=== PATIENT | female | born 1955 | race Caucasian/White ===

== ENCOUNTER 2016-07-20 16:19 | Emergency (ER) | payer OTHER ==
[2016-07-20 16:47] VITALS: BP 118/80; PULSE 85; RESP 18; TEMP 98.1; O2SAT 93
--- NOTE | 2016-07-20 16:58 | UCPHY ---
H & P Time Seen by Provider: 07/20/16 16:49 Patient Type: Established HPI/ROS: CHIEF COMPLAINT: Needs medication refill HISTORY OF PRESENT ILLNESS: 61-year-old female with chronic pain, followed by a Pain Medicine Clinic in [place], presents reporting that she needs a prescription for her morphine sulfate 15 mg tablets. Patient has chronic back pain and was recently seen by her pain management physician. He wrote a prescription for morphine sulfate 15 mg number 90. Patient presents to the prescription to a nearby pharmacy. It was noted that the 15 had been altered in a different pen to appear as a 45. Patient shows me the prescription: Patient has addressed this filled out and a black pen in the same black pen appears to have been used to make a small L-shaped sebas near the 1 to converted to a 4. Patient denies doing this. She tells me she is not sure how this happened. It may have been caused by a pharmacy picking technician or another pharmacy employer who wrote her address in black ink. The prescription itself is written in blue ink. Patient states that she called her primary care physician who advised to come to Urgent Care. She states that she called her pain medicine doctor who declined to fill the prescription. REVIEW OF SYSTEMS: Aside from elements discussed in the HPI, a comprehensive 10-point review of systems was reviewed and is negative. PAST MEDICAL HISTORY: Chronic lumbar spine pain. Patient tells me she has a surgery scheduled early July. SOCIAL HISTORY: Smoker. VITAL SIGNS: see nurse's notes. GENERAL: Well-developed, well-nourished, wearing a LSO brace. HEENT: Benign. BACK: Currently in an LSO brace. Tenderness over the lower lumbar spine diffusely. EXTREMITIES: Moving all extremities x4. NEURO: Alert and oriented, grossly nonfocal. SKIN: Warm and dry, no rash. Smoking Status: Light smoker Constitutional: Initial Vital Signs Temperature (C) 36.7 C 07/20/16 16:41 Heart Rate 85 07/20/16 16:41 Respiratory Rate 18 07/20/16 16:41 Blood Pressure 118/80 07/20/16 16:41 O2 Sat (%) 93 07/20/16 16:41 O2 Delivery Mode Room Air Allergies/Adverse Reactions: Corticosteroids (Glucocorticoids) Allergy (Severe, Verified 02/16/16 14:54) Swelling/neck,face,throat Home Medications: Medication Instructions Recorded Levothyroxine [Synthroid 100 mcg 100 mcg PO DAILY06 06/07/13 (*)] Sertraline HCl [Zoloft 100mg (*)] 100 mg PO DAILY 06/07/13 Pregabalin [Lyrica 50mg (*)] 100 mg PO DAILY 02/05/16 tiZANidine HCL [Zanaflex 2MG (*)] 4 mg PO Q8 PRN 02/13/16 Methocarbamol [Robaxin 750 mg (*)] 750 mg PO QID PRN #0 tab 02/23/16 morphINE SR [MS Contin/Oramorph 60 60 mg PO Q8 #0 tab 02/23/16 mg (*)] MDM/Departure - MDM ED Course/Re-evaluation: Patient reports that she needs 45 mg of morphine sulfate 3 times a day. She currently has morphine sulfate 30 mg which she has been using 3 times a day. I advised patient that I will not fill her morphine sulfate 15 mg prescription. She should take the original prescription back to her pain clinic office. My suspicion is that if they were willing to write her prescription for 15 mg of morphine sulfate, and the prescription she currently has an hand has not been filled, they will need to discuss with her whether they will authorize additional prescription for 15 mg of morphine sulfate. Patient understands my concerns and was discharged in stable condition. Differential Diagnosis: Differential diagnoses for the patient's symptom complex was considered including but not limited to medication refill, medication error, drug-seeking behavior, chronic pain. - Depart Disposition: Home, Routine, Self-Care Clinical Impression: Fusion of lumbar spine, Medication refill Back pain Qualifiers: Back pain location: low back pain Chronicity: chronic Back pain laterality: midline Sciatica presence: unspecified whether sciatica present Qualifier Code: (M54.5) Low back pain Condition: Good Instructions: Chronic Pain (ED), Chronic Back Pain (ED) Additional Instructions: The Urgent Care is not able to feel your prescription for morphine sulfate extended release. My recommendation is that you contact your pain medication Clinic and advised them of the issues with your prescription. Referrals: Jennifer Ruvalcaba MD [Primary Care Provider] - As per Instructions - PQRS PQRS Measurement: Not applicable
== END 2016-07-20 17:05 | disposition home or self-care (01) ==
LOC: CED 16:19
DX: M54.5 Low back pain (principal); Z76.0 Encounter for issue of repeat prescription
CPT/HCPCS: G0463-PO

== ENCOUNTER 2016-08-09 09:02 | Day surgery (SDC) | payer OTHER ==
[~2016-08-09 09:02] MED LIST: CHLORHEXIDINE GLUC HIBICLENS 118 ML BTL TP ONE; ceFAZolin 2 GM/DEXTROSE 100 ML IV ONE
[2016-08-09] MEDS ORDERED: LR 1,000 ML IV ONE (09:33)
[2016-08-09] MEDS ORDERED: LIDOCAINE 1% 5 ML SDV ID PRN (09:33)
[2016-08-09] MEDS ORDERED: CEFAZOLIN 2 GM/DEXTROSE/100 ML BAG IV ONE (09:43)
[2016-08-09] MEDS ORDERED: IOPAMIDOL (ISOVUE-M 300) 15 ML VIAL IV ONE (09:49)
[2016-08-09] MEDS ORDERED: BUPIVACAINE/EPI 0.25% 30 ML SDV ONE (09:49)
[2016-08-09] MEDS ORDERED: BACITRACIN 50,000 UNITS/10 ML SYR IRR ONE (09:49)
[2016-08-09] MEDS ORDERED: THROMBIN (RECOMBINANT) 5,000 UNIT VIAL TP ONE (09:49)
[2016-08-09] MEDS ORDERED: PROPOFOL 200 MG/20 ML VIAL ONE (10:22)
[2016-08-09] MEDS ORDERED: HYDROmorphONE/DILAUDID 2 MG/ML SYR ONE (10:22)
[2016-08-09] MEDS ORDERED: LIDOCAINE 2% 5 ML SDV ONE ×2 (10:25)
[2016-08-09] MEDS ORDERED: ROCURONIUM 50 MG/5 ML VIAL ONE (10:25)
[2016-08-09] MEDS ORDERED: ONDANSETRON 4 MG/2 ML VIAL ONE (10:26)
[2016-08-09] MEDS ORDERED: REMIFENTANIL HCL 1 MG VIAL ONE ×2 (10:27)
[2016-08-09] MEDS ORDERED: PROPOFOL/EMULSION 500 MG/50 ML BOTTLE IV ONE ×2 (10:27→11:29)
[2016-08-09] MEDS ORDERED: MIDAZOLAM 2 MG/2 ML VIAL ONE (10:30)
[2016-08-09] MEDS ORDERED: METOCLOPRAMIDE 10 MG/2 ML VIAL ONE (10:37)
[2016-08-09] MEDS ORDERED: OXYCODONE/APAP 5/325 TAB PO PRN (12:14)
[2016-08-09] MEDS ORDERED: diphenhydrAMINE 25 MG CAP PO PRN (12:14)
[2016-08-09] MEDS ORDERED: HYDROmorphONE/DILAUDID 1 MG/ML SYR IVP PRN (12:14)
[2016-08-09] MEDS ORDERED: DIAZEPAM 5 MG TAB PO PRN (12:14)
[2016-08-09] MEDS ORDERED: METHOCARBAMOL 750 MG TAB PO PRN (12:14)
[2016-08-09] MEDS ORDERED: LACTULOSE 20 GM/30 ML UDCUP PO PRN (12:14)
[2016-08-09] MEDS ORDERED: DIAZEPAM 10 MG/2 ML SYR IVP PRN (12:14)
[2016-08-09] MEDS ORDERED: ACETAMINOPHEN 325 MG TAB PO PRN (12:14)
[2016-08-09] MEDS ORDERED: BISACODYL 10 MG SUPP PR PRN (12:14)
[2016-08-09] MEDS ORDERED: HYDROCODONE/APAP 10/325 TAB PO PRN (12:14)
[2016-08-09] MEDS ORDERED: ONDANSETRON 4 MG/2 ML VIAL IVP PRN (12:14)
[2016-08-09] MEDS ORDERED: MAGNESIUM HYDROXIDE 30 ML UDCUP PO PRN (12:14)
[2016-08-09] MEDS ORDERED: ONDANSETRON DISINTEGRATING 4 MG TAB PO PRN (12:14)
[2016-08-09] MEDS ORDERED: NS W/ 20 KCl/L 1,000 ML IV SCH (12:15)
[2016-08-09] MEDS ORDERED: tiZANidine HCL 2 MG TAB PO PRN (12:17)
--- NOTE | 2016-08-09 12:20 | POSTOPPROG ---
Post Op Note Date of Operation: 08/09/16 Surgeon: Gael Nicole Extended Insurance Clerk: Gordy Anesthesiologist: criselda Anesthesia: GET(General Endotracheal) Pre-op Diagnosis: T7 compression fracture Post-op Diagnosis: same Indication: back pain Procedure: T7 kyphoplasty Findings: fracture Inf/Abcess present in the surg proc area at time of surgery?: No EBL: Minimal Complications: None
--- NOTE | 2016-08-09 12:22 | SOAPPROG ---
BANDAR Progress Note Assessment/Plan: Assessment: 61 yo F sp T7 kyphoplasty Plan: stable to 3N PT/OT x-rays today please call with neuro changes 08/09/16 12:20 Subjective: + back pain, no rib pain. Objective: somnolent PERRL, No facial droop, VERONICA x 4 + light touch ICD10 Worksheet Patient Problems: Problems Problem Status Diagnosed Thoracic vertebral fracture Acute - ICD10 Problem Qualifiers (1) Thoracic vertebral fracture
[2016-08-09] MEDS ORDERED: fentaNYL 100 MCG/2 ML INJ ONE (12:24)
[2016-08-09] MEDS ORDERED: oxyCODONE IR 5 MG TAB PO PRN (13:38)
--- NOTE | 2016-08-09 13:54 | GOP ---
[f rep st] OPERATIVE REPORT DATE OF OPERATION: 08/09/2016 SURGEON: Gael Nicole MD SHIFT COMMANDER: GEMMA Dalal ANESTHESIA: General endotracheal. PREOPERATIVE DIAGNOSIS: T7 vertebral compression fracture. POSTOPERATIVE DIAGNOSIS: T7 vertebral compression fracture. PROCEDURE PERFORMED: T7 radiofrequency kyphoplasty procedure with use of intraoperative computer vol umetric stereotactic navigation and real-time biplanar fluoroscopy. FINDINGS: ESTIMATED BLOOD LOSS: Trace. INDICATIONS: The patient is a 61-year-old woman who, about 6 months ago, underwent a T7 through edouard c spinal reconstruction procedure with subsequent pain in the upper thoracic spine, and was found to have what appeared to be a T7 fracture. Multiple options were discussed with her, including observat ion versus re-instrumentation and extension of the fusion upwards, and we felt that this was the smal lest operation with the most potential benefit. The patient presents now for 3D image-guided kyphopl asty procedure. DESCRIPTION OF PROCEDURE: After informed consent was obtained, the patient was taken to the operatin g room, placed in the prone position on the Jared table. The thoracic area was prepped and draped in a sterile fashion. After fluoroscopic localization of the correct level, the subcutaneous and int ramuscular tissues were infiltrated with local anesthesia a couple levels above this area. A small i ncision was created and carried down to the spinous process, where a stereotactic frame was connected . The O-arm neuronavigational system was then brought in, and 3D reconstructed images obtained and s ent to the Stealth station. Using computer volumetric stereotactic navigation, the T7 pedicles were cannulated around the prior screws as best we could. The radiofrequency kyphoplasty procedure was th en performed under real-time biplanar fluoroscopy. Excellent filling was observed with no leakage. Approximately 4 cc of bone cement was injected between the 2 sides. The cannulae were then removed, and the wound was copiously irrigated with antibiotic irrigation and closed in a layered fashion usin g interrupted Vicryl sutures followed by Steri-Strips on the skin. COMPLICATIONS: None. DISPOSITION: The patient was extubated and transferred to the recovery room in stable condition. /[id number]/MODL
[2016-08-09] MEDS ORDERED: oxyCODONE IR 5 MG TAB ONE (13:58)
[2016-08-09] MEDS ORDERED: POLYETHYLENE GLYCOL 3350 17 GM PKT PO SCH (16:00)
--- NOTE | 2016-08-09 19:02 | DX ---
Intraoperative fluoroscopy History: Kyphoplasty. Comparison: PA and lateral chest June 01, 2016. Findings: 2 intraoperative images show placement of kyphoplasty cement at T7, with a stable mild comp ression fracture. Thoracolumbar fusion hardware is incompletely visualized. Fluoro time: 31.4 seconds. Dose: 31.5 mGy. 2 3-D spins were performed, with combined dose of 34 mGy. Impression: Intraoperative fluoroscopy as above.
[2016-08-09] MEDS ORDERED: morphINE SR 60 MG TAB PO SCH (21:00)
[2016-08-09] MEDS ORDERED: FAMOTIDINE 20 MG/NACL 50 ML IV SCH (21:00)
[2016-08-09] MEDS ORDERED: SENNOSIDES/DOCUSATE SODIUM TAB PO SCH (21:00)
[2016-08-10] MEDS ORDERED: LEVOTHYROXINE 100 MCG TAB PO SCH (06:00)
[2016-08-10] MEDS ORDERED: SERTRALINE HCL 100 MG TAB PO SCH (09:00)
[2016-08-10] MEDS ORDERED: PREGABALIN 50 MG CAP PO SCH (09:00)
[2016-08-11] MEDS ORDERED: ENOXAPARIN 40 MG/0.4 ML SYR SC SCH (09:00)
== END 2016-08-09 15:15 | disposition home or self-care (01) ==
LOC: FSGY 09:02 → UNDOADMOB 12:15 → F3N 12:15 → FSGY 15:15
PROVIDERS: ATTEND Neurological Surgery
PROC: 0RU Upper Joints, Supplement (ICD-10-PCS; principal; 2016-08-09 10:15)
PROC: 0PS43ZZ Reposition Thoracic Vertebra, Percutaneous Approach (ICD-10-PCS; principal; 2016-08-09 10:15)
DX: S22.060A Wedge compression fracture of T7-T8 vertebra, initial encounter for closed fracture (principal); X58.XXXA Exposure to other specified factors, initial encounter; Z98.1 Arthrodesis status; E03.9 Hypothyroidism, unspecified
CPT/HCPCS: C1713; J0690; J1170; J2250; J2405; J2704; J2765; J3010; Q9967

== ENCOUNTER → 2016-11-25 | Outpatient (CLI) | payer OTHER | LOC: CIMAGING 18:14 | PROVIDERS: ATTEND Physician Assistant Surgical | DX: M54.9 Dorsalgia, unspecified (principal); Z98.1 Arthrodesis status; M48.54XA Collapsed vertebra, not elsewhere classified, thoracic region, initial encounter for fracture | CPT/HCPCS: 72070-PO; 72100-PO ==

== ENCOUNTER → 2017-01-17 | Outpatient (CLI) | payer OTHER | LOC: CIMAGING 12:37 | PROVIDERS: ATTEND Internal Medicine | DX: Z12.31 Encounter for screening mammogram for malignant neoplasm of breast (principal) | CPT/HCPCS: G0202 ==

== ENCOUNTER 2017-03-08 15:13 | Emergency (ER) | payer OTHER ==
[2017-03-08 15:29] VITALS: TEMP 98.4; O2SAT 95
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
[2017-03-08 18:04] VITALS: BP 115/70; PULSE 66; RESP 16
[2017-03-08] MEDS ORDERED: IOPAMIDOL (ISOVUE-300) 100 ML BTL ONE (18:20)
== END 2017-03-08 18:40 | disposition left against medical advice (07) ==
DX: R39.15 Urgency of urination (principal); M54.6 Pain in thoracic spine; F17.200 Nicotine dependence, unspecified, uncomplicated
CPT/HCPCS: 82947-QW; Q9967

== ENCOUNTER → 2017-05-13 | Outpatient (CLI) | payer OTHER | LOC: FIMAGING 10:02 | PROVIDERS: ATTEND Physician Assistant Surgical | DX: Z09 Encounter for follow-up examination after completed treatment for conditions other than malignant neoplasm (principal); Z98.1 Arthrodesis status ==

== ENCOUNTER → 2017-05-30 | Outpatient (CLI) | payer OTHER ==
[~2017-05-30] MED LIST changes: -CHLORHEXIDINE GLUC HIBICLENS 118 ML BTL TP ONE; +DEPO METHYLPREDNISOLONE 40 MG/ML SDV ONE; +IOPAMIDOL (ISOVUE 370) 100 ML BTL IV ONE; +LIDOCAINE 1% 300 MG/30 ML SDV ONE; +ROPIVACAINE HCL 150 MG/30 ML INJ ONE; +TRIAMCINOLONE ACETONIDE 40 MG/ML VIAL ONE; -ceFAZolin 2 GM/DEXTROSE 100 ML IV ONE
== END ==
LOC: FIMAGING 10:33
PROVIDERS: ATTEND Orthopaedic Surgery
PROC: 3E0U3BZ Introduction of Anesthetic Agent into Joints, Percutaneous Approach (ICD-10-PCS; principal; 2017-05-30)
PROC: 3E0U33Z Introduction of Anti-inflammatory into Joints, Percutaneous Approach (ICD-10-PCS; principal; 2017-05-30)
DX: M16.12 Unilateral primary osteoarthritis, left hip (principal)
CPT/HCPCS: 20610; J2795; J3301; Q9967; J1030

== ENCOUNTER 2018-09-01 15:05 | Inpatient (IN) | payer OTHER ==
--- NOTE | 2018-09-01 16:56 | EDPHY ---
General Time Seen by Provider: 09/01/18 16:53 Narrative: CLINICAL IMPRESSION: Cat bite, left hand cellulitis, thoracic back pain, bowel and bladder incontinence ASSESSMENT/PLAN: Patient is a 63-year-old female with a history of GERD, depression, anxiety, hypothyroidism, opioid induced constipation and chronic thoracic back pain presents to the emergency department with concerns of left hand infection and episode of both bowel and bladder incontinence yesterday and today. Patient is afebrile, she is not toxic appearing and in no acute distress. She was noted to be mildly tachycardic at 94. She did not meet SIRS or sepsis criteria. Physical exam reveals cellulitis of the left hand and left thigh, her neurological exam was grossly normal with no focal deficit. Blood cultures were obtained. Lactate within normal limits at 0.8. CBC with no evidence of leukocytosis. CMP grossly unremarkable. Hand x-ray with no evidence of retained foreign body or bony involvement. History and physical examination is consistent with hand cellulitis, thigh cellulitis secondary to cat scratch as well as back pain with new bowel and bladder incontinence. The areas of cellulitis were marked, Unasyn was initiated in the emergency department. Her tetanus status was updated. In regards to her bowel and bladder incontinence, plans for MRI with and without contrast with concern for cauda equina/cord compression. She remained neurologically intact while in the emergency department and will be admitted for further observation and management. I spoke to Dr. John who will be the admitting physician. DIFFERENTIAL DX: Differential diagnosis including but not limited to and in no particular order cellulitis, tenosynovitis, abscess, necrotizing skin infection, deep space infection, bony involvement ED COURSE: 1716: Case discussed with Dr. Ricci 1814: On repeat exam the patient's neurological exam remained grossly normal with no focal deficit. Her areas of cellulitis were marked. She denies any complaints at this time. CHIEF COMPLAINT: Possible hand infection, cat bite HPI: Patient is a 63-year-old female who presents to the emergency department with several complaints. Patient is well established with Dr. Nicole, plans for surgery next Tuesday for revision T7-10 hardware removal and fusion. Seen in their office today secondary to bowel incontinence yesterday, bladder incontinence today and possible infection to her left hand. Patient reports on Tuesday she was trying to trim the nails of her domestic cat when the cat clot both her left hand and left thigh. She started noticing her hand to be red and swollen yesterday as well as her thigh. It is becoming progressively more red, swollen and painful. No history of MRSA infections. Patient denies any fevers , chills, nausea, vomiting or decreased appetite. She has had no chest pain or shortness of breath. She has been feeling anxious over the last week secondary to her upcoming surgery with increased episodes of reflux. She denies any urinary symptoms to include dysuria, hematuria or frequency. She has been able to hold her stool since her single episode yesterday. She has also been able to hold her urine since her single episode of incontinence this morning. She has never experienced this before. Patient denies saddle paresthesias, lower extremity numbness, tingling or major motor weakness. PMH: Anxiety, depression, hypothyroidism, GERD, chronic pain, opioid induced constipation Pertinent Past Surgical History: A total of 4 thoracic surgeries involving T7 - T10, remote C 4 5 fusion in 1980. Family History: Noncontributory Social History: Remote smoker, denies alcohol use or illicit drug use. REVIEW OF SYSTEMS: All other systems negative Constitutional: No fever, no chills, appetite change. Eyes: No discharge, vision change ENT: No sore throat, congestion, ear pain. Cardiovascular: No chest pain, no palpitations. Respiratory: No cough, no shortness of breath. Gastrointestinal: Upper abdominal pain, intermittent. No vomiting, diarrhea. Genitourinary: No hematuria, dysuria, flank pain, pelvic pain. Musculoskeletal: No back pain, joint swelling, joint pain, myalgias. Skin: No rashes, color change. Neurological: No headache, dizziness, weakness. PHYSICAL EXAM: General Appearance: Well-developed, no acute distress. HENT: Normocephalic, atraumatic. Bilateral external ears are normal. Bilateral tympanic membranes are normal with pearly mcdonald reflex. Nares are clear, mucosa is pink. Oropharynx is clear, uvula is midline. There is no tonsillar enlargement or exudate. The dentition is normal. Eyes: PERRLA, EOMI intact. Conjunctiva pink, no pallor or injection Neck: Supple, nontender, no lymphadenopathy, no midline pain, FROM. Well- healed anterior neck incision Back: No step-off, palpable bony abnormality, edema, erythema or ecchymosis of the cervical, thoracic or lumbar spines. TTP: Mid thoracic spine, well-healed incision along the thoracic spine. Limited ROM of lumbar spine due to pain. 5/5 and equal strength of the UEs and LEs bilaterally including shoulder shrug. Pulses: 2+ and equal radial, DP and PT pulses bilaterally. Sensation intact and symmetric to light touch from face, UEs and LEs bilaterally. Mildly hyper reflexive left patellar. Respiratory: There are no retractions, lungs are clear to auscultation. Cardiac: Regular rate and rhythm, no murmurs or gallops. Gastrointestinal: Abdomen is soft, patient has mild tenderness in the epigastrium without rebound or guarding. Abdomen is otherwise nontender. Bowel sounds normal, no masses/hernia, no rigidity, guarding or focal peritoneal findings. Neurological: Alert and oriented x 3, CN 2-12 grossly intact, normal gait no ataxia, normal sensation and strength. Skin: Warm, dry, no rashes, no nodules on palpation. Upper Extremities: Right upper extremity is unremarkable Intact distal pulses, Full range of motion intact, no tenderness, no ecchymosis or edema. Left upper extremity with generalized edema and erythema along the dorsal aspect of the hand tracking up the ulnar aspect of the forearm. There is a wound noted on the dorsal aspect of the hand. She is able to flex, extend, invert and tess without much difficulty. She has no tenderness along her extensor tendon sheaths. Two point discrimination is intact distally. Lower Extremities: Right lower extremity is unremarkable. Intact distal pulses , No edema, No tenderness, No cyanosis, full range of motion intact. Left lower extremity with healing wound to the left medial knee, nontender with no surrounding erythema. There is an open wound to the anterior thigh with surrounding erythema and calor. No calf tenderness bilaterally. Psychiatric: Patient is oriented X 3, there is no agitation. MEDICAL DECISION MAKING: Patient was seen independently. Secondary supervising physician at time of evaluation was Dr. Ricci, he did not evaluate this patient. Diagnosis: Cat bite- left hand cellulitis, left thigh cellulitis; thoracic back pain, bowel and bladder incontinence. New, requires workup Summary: See Assessment and Plan for summary of ED visit Clinical lab tests: ordered / reviewed. Independent visualization of images, tracing, or specimens: Yes. Decision to obtain medical records or history from someone other than the patient: Yes, daughter Review / Summarize previous medical records: Yes Discussed patient with another provider: Yes, Dr. Ricci Patient Progress: Stable, admit. - Diagnostics Imaging Results: Imaging Impressions Hand X-Ray 09/01/18 17:12 Impression: Pronounced dorsal hand soft tissue swelling with no radiopaque foreign body or acute osseous abnormality. - History Smoking Status: Former smoker - Objective Vital Signs: Initial Vital Signs Temperature (C) 37 C 09/01/18 15:24 Heart Rate 96 09/01/18 15:24 Respiratory Rate 16 09/01/18 15:24 Blood Pressure 115/71 09/01/18 15:24 O2 Sat (%) 91 L 09/01/18 15:24 O2 Delivery Mode Room Air Allergies/Adverse Reactions: Corticosteroids (Glucocorticoids) Allergy (Severe, Verified 03/08/17 15:24) Swelling/neck,face,throat Home Medications: Medication Instructions Recorded Calcium Carb W/Vit D [Calcium Carb 500 mg PO DAILY 08/17/18 W/Vit D 500/200 (*)] DULoxetine [Cymbalta 60 MG (*)] 60 mg PO DAILY 08/17/18 Diazepam [Valium 5 MG (*)] 5 - 10 mg PO BID PRN 08/17/18 Levothyroxine [Synthroid 100 mcg 100 mcg PO DAILY06 08/17/18 (*)] Linaclotide [Linzess] 145 mcg PO HS 08/17/18 Naloxegol Oxalate [Movantik] 25 mg PO DAILY 08/17/18 Naproxen Sodium [Aleve 220 MG (*)] 220 mg PO BID PRN 08/17/18 Pantoprazole Sodium [Protonix 40mg 40 mg PO DAILY 08/17/18 (*)] Pregabalin [Lyrica 150mg (*)] 150 mg PO BID 08/17/18 morphINE SR [Ms Contin/Oramorph 15 15 mg PO BID 08/17/18 mg (*)] HYDROmorphone HCL [Dilaudid 4 mg 4 mg PO Q8H PRN 09/01/18 (*)] Laboratory Results: Laboratory Results 09/01/18 17:38 09/01/18 17:38 09/01/18 09/01/18 09/01/18 17:38 17:38 17:38 WBC RBC Hgb Hct 39.8 % % (38.0-47.0) MCV MCH MCHC RDW Plt Count MPV Neut % (Auto) Lymph % (Auto) [place] % (Auto) Eos % (Auto) Baso % (Auto) Nucleat RBC Rel Count Absolute Neuts (auto) Absolute Lymphs (auto) Absolute Monos (auto) Absolute Eos (auto) Absolute Basos (auto) Absolute Nucleated RBC Immature Gran % Immature Gran # ESR 33 MM/HR H MM/HR (0-30) VBG Lactic Acid 0.8 mmol/L mmol/L (0.7-2.1) Sodium 135 mEq/L mEq/L (135-145) Potassium 3.7 mEq/L mEq/L (3.5-5.2) Chloride 101 mEq/L mEq/L (97-110) Carbon Dioxide 26 mEq/l mEq/l (22-31) Anion Gap 8 mEq/L mEq/L (6-14) BUN 13 mg/dL mg/dL (7-23) Creatinine 0.6 mg/dL mg/dL (0.6-1.0) Estimated GFR > 60 Glucose 104 mg/dL H mg/dL (70-100) Calcium 9.2 mg/dL mg/dL (8.5-10.4) Total Bilirubin 0.7 mg/dL mg/dL (0.1-1.4) AST 19 IU/L IU/L (14-46) ALT 21 IU/L IU/L (9-52) Alkaline Phosphatase 108 IU/L IU/L (38-126) Total Protein 7.1 g/dL g/dL (6.3-8.2) Albumin 3.9 g/dL g/dL (3.5-5.0) 09/01/18 17:38 WBC 6.44 10^3/uL 10^3/uL (3.80-9.50) RBC 4.73 10^6/uL 10^6/uL (4.18-5.33) Hgb 12.5 g/dL L g/dL (12.6-16.3) Hct 39.4 % % (38.0-47.0) MCV 83.3 fL fL (81.5-99.8) MCH 26.4 pg L pg (27.9-34.1) MCHC 31.7 g/dL L g/dL (32.4-36.7) RDW 16.9 % H % (11.5-15.2) Plt Count 163 10^3/uL 10^3/uL (150-400) MPV 10.3 fL fL (8.7-11.7) Neut % (Auto) 78.6 % H % (39.3-74.2) Lymph % (Auto) 14.0 % L % (15.0-45.0) [place] % (Auto) 6.4 % % (4.5-13.0) Eos % (Auto) 0.5 % L % (0.6-7.6) Baso % (Auto) 0.3 % % (0.3-1.7) Nucleat RBC Rel Count 0.0 % % (0.0-0.2) Absolute Neuts (auto) 5.07 10^3/uL 10^3/uL (1.70-6.50) Absolute Lymphs (auto) 0.90 10^3/uL L 10^3/uL (1.00-3.00) Absolute Monos (auto) 0.41 10^3/uL 10^3/uL (0.30-0.80) Absolute Eos (auto) 0.03 10^3/uL 10^3/uL (0.03-0.40) Absolute Basos (auto) 0.02 10^3/uL 10^3/uL (0.02-0.10) Absolute Nucleated RBC 0.00 10^3/uL 10^3/uL (0-0.01) Immature Gran % 0.2 % % (0.0-1.1) Immature Gran # 0.01 10^3/uL 10^3/uL (0.00-0.10) ESR VBG Lactic Acid Sodium Potassium Chloride Carbon Dioxide Anion Gap BUN Creatinine Estimated GFR Glucose Calcium Total Bilirubin AST ALT Alkaline Phosphatase Total Protein Albumin Medications Given: Hydromorphone HCl (Dilaudid) 0.2 - 0.4 mg IVP Q4HRS PRN PRN Reason: Pain, Severe Unable to Take PO Stop: 09/11/18 21:30 Last Admin: 09/01/18 22:06 Dose: 0.2 mg Ampicillin Sodium/Sulbactam (Sodium 3 gm/ Sodium Chloride) 100 mls @ 200 mls/ hr IV Q6HRS [facility] PRN Reason: Protocol Stop: 10/02/18 00:00 Last Admin: 09/01/18 23:48 Dose: 100 mls Morphine Sulfate (Ms Contin/Oramorph) 15 mg PO BID [facility] Stop: 09/11/18 21:44 Last Admin: 09/01/18 23:05 Dose: 15 mg Pregabalin (Lyrica) 150 mg PO BID [facility] Stop: 02/28/19 21:44 Last Admin: 09/01/18 23:05 Dose: 150 mg Discontinued Medications Diphtheria/Tetanus/Acell Pertussis (Boostrix) 0.5 ml IM .ONCE ONE Stop: 09/01/18 18:21 Last Admin: 09/01/18 18:26 Dose: 0.5 ml Sodium Chloride (Ns) 1,000 mls @ 0 mls/hr IV ONCE ONE PRN Reason: Wide Open Stop: 09/01/18 17:15 Last Admin: 09/01/18 18:07 Dose: 1,000 mls Ampicillin Sodium/Sulbactam (Sodium 3 gm/ Sodium Chloride) 100 mls @ 200 mls/ hr IV EDNOW ONE PRN Reason: Protocol Stop: 09/01/18 17:42 Last Admin: 09/01/18 18:04 Dose: 100 mls Departure - Departure Disposition: [facility] Acute Clinical Impression: Cellulitis and abscess of hand, Cellulitis and abscess of left leg, Bowel and bladder incontinence
[2018-09-01] MEDS ORDERED: AMPICILLIN/SULBACTAM 3 GM in NS 100 ML IV ONE (17:13)
[2018-09-01] MEDS ORDERED: NS 1,000 ML IV ONE (17:14)
[2018-09-01 17:54] LABS: PLATELET COUNT 163 10^3/uL (150-400)
[2018-09-01] MEDS ORDERED: TDAP ADULT 0.5 ML INJ (BOOSTRIX) IM ONE (18:20)
[2018-09-01] MEDS ORDERED: GADOBUTROL 10 ML VIAL IVP ONE (19:52)
[2018-09-01] MEDS ORDERED: ONDANSETRON DISINTEGRATING 4 MG TAB PO PRN (21:31)
[2018-09-01] MEDS ORDERED: ONDANSETRON 4 MG/2 ML VIAL IVP PRN (21:31)
[2018-09-01] MEDS ORDERED: HYDROCODONE/APAP 5/325 TAB PO PRN (21:31)
[2018-09-01] MEDS ORDERED: ACETAMINOPHEN 325 MG TAB PO PRN (21:31)
[2018-09-01] MEDS ORDERED: NAPROXEN SODIUM 220 MG TAB PO PRN (21:40)
[2018-09-01] MEDS: HYDROmorphONE/DILAUDID 1 MG/ML INJ IVP PRN (22:06)
[2018-09-01] MEDS ORDERED: IOPAMIDOL (ISOVUE-300) 100 ML BTL ONE (22:08)
--- NOTE | 2018-09-01 22:36 | PDGENHP ---
History and Physical - Chief Complaint left hand and leg redness and pain - History of Present Illness 63 yo female with h/o thoracic spine disease and prior T7-T10 fusion presented to ED from her neurosurgeon's clinic due to concern for LUE and LLE cellulitis. She apparently developed bowel and bladder incontinence and was re-evaluated by her neurosurgeon, Dr. Nicole. She had a normal CT 2 days ago. While in Dr Bains's clinic, it was noted her left hand and left leg had obvious cellulitis. She reported being scratched in multiple areas by her cat. Over the past 2 days, she has noticed increased redness, pain and decreased ROM of her left wrist. She reports low grade fevers, no chills or rigors. No CP or SOB. In the ED, blood cultures were drawn. She received IV Unasyn and is admitted for further managemnet. History Information - Allergies/Home Medication List Allergies/Adverse Reactions: Corticosteroids (Glucocorticoids) Allergy (Severe, Verified 03/08/17 15:24) Swelling/neck,face,throat Home Medications: Calcium Carb W/Vit D [Calcium Carb W/Vit D 500/200 (*)] 500 mg PO DAILY [Last Taken Unknown] DULoxetine [Cymbalta 60 MG (*)] 60 mg PO DAILY 08/17/18 [Last Taken 09/01/18] Diazepam [Valium 5 MG (*)] 5 - 10 mg PO BID PRN 08/17/18 [Last Taken 08/31/18] Levothyroxine [Synthroid 100 mcg (*)] 100 mcg PO DAILY06 08/17/18 [Last Taken ] Linaclotide [Linzess] 145 mcg PO HS 08/17/18 [Last Taken 08/31/18] Naloxegol Oxalate [Movantik] 25 mg PO DAILY 08/17/18 [Last Taken 09/01/18] Naproxen Sodium [Aleve 220 MG (*)] 220 mg PO BID PRN 08/17/18 [Last Taken Unknown] Pantoprazole Sodium [Protonix 40mg (*)] 40 mg PO DAILY 08/17/18 [Last Taken 02/12] Pregabalin [Lyrica 150mg (*)] 150 mg PO BID 08/17/18 [Last Taken 09/01/18] morphINE SR [Ms Contin/Oramorph 15 mg (*)] 15 mg PO BID 08/17/18 [Last Taken 02/12 am dose] HYDROmorphone HCL [Dilaudid 4 mg (*)] 4 mg PO Q8H PRN 09/01/18 [Last Taken 09/01 one dose in am] I have personally reviewed and updated: family history, medical history, social history, surgical history - Past Medical History Additional medical history: Chronic back pain. Chronic continuous opioid dependence. H/O T7-T10 fusion - Surgical History Additional surgical history: T7-T10 fusion - Family History Positive for: non-pertinent - Social History Smoking Status: Former smoker Alcohol Use: None Drug Use: None Additional social history: Lives independently Review of Systems Review of Systems: ROS: 10pt was reviewed & negative except for what was stated in HPI & below Physical Exam Physical Exam: Temp Pulse Resp BP Pulse Ox 36.6 C 71 16 130/83 H 91 L 09/01/18 20:43 09/01/18 20:43 09/01/18 20:43 09/01/18 20:43 09/01/18 20:43 Constitutional: no apparent distress Eyes: PERRL Ears, Nose, Mouth, Throat: moist mucous membranes Cardiovascular: regular rate and rhythym Respiratory: no respiratory distress, clear to auscultation Gastrointestinal: normoactive bowel sounds, soft, non-tender abdomen Skin: warm, other (Left wrist with marked erythema and focal induration on dorsum of wrist. Edema extends into hand and erythema extends up forearm. Also left leg with focal erythema and induration, without fluctuance) Musculoskeletal: full muscle strength Neurologic: AAOx3 Psychiatric: interacting appropriately Lab Data & Imaging Review 09/01/18 17:38 09/01/18 17:38 WBC 6.44 10^3/uL (3.80-9.50) 09/01/18 17:38 RBC 4.73 10^6/uL (4.18-5.33) 09/01/18 17:38 Hgb 12.5 g/dL (12.6-16.3) L 09/01/18 17:38 Hct 39.4 % (38.0-47.0) 09/01/18 17:38 MCV 83.3 fL (81.5-99.8) 09/01/18 17:38 MCH 26.4 pg (27.9-34.1) L 09/01/18 17:38 MCHC 31.7 g/dL (32.4-36.7) L 09/01/18 17:38 RDW 16.9 % (11.5-15.2) H 09/01/18 17:38 Plt Count 163 10^3/uL (150-400) 09/01/18 17:38 MPV 10.3 fL (8.7-11.7) 09/01/18 17:38 Neut % (Auto) 78.6 % (39.3-74.2) H 09/01/18 17:38 Lymph % (Auto) 14.0 % (15.0-45.0) L 09/01/18 17:38 [place] % (Auto) 6.4 % (4.5-13.0) 09/01/18 17:38 Eos % (Auto) 0.5 % (0.6-7.6) L 09/01/18 17:38 Baso % (Auto) 0.3 % (0.3-1.7) 09/01/18 17:38 Nucleat RBC Rel Count 0.0 % (0.0-0.2) 09/01/18 17:38 Absolute Neuts (auto) 5.07 10^3/uL (1.70-6.50) 09/01/18 17:38 Absolute Lymphs (auto) 0.90 10^3/uL (1.00-3.00) L 09/01/18 17:38 Absolute Monos (auto) 0.41 10^3/uL (0.30-0.80) 09/01/18 17:38 Absolute Eos (auto) 0.03 10^3/uL (0.03-0.40) 09/01/18 17:38 Absolute Basos (auto) 0.02 10^3/uL (0.02-0.10) 09/01/18 17:38 Absolute Nucleated RBC 0.00 10^3/uL (0-0.01) 09/01/18 17:38 Immature Gran % 0.2 % (0.0-1.1) 09/01/18 17:38 Immature Gran # 0.01 10^3/uL (0.00-0.10) 09/01/18 17:38 VBG Lactic Acid 0.8 mmol/L (0.7-2.1) 09/01/18 17:38 Sodium 135 mEq/L (135-145) 09/01/18 17:38 Potassium 3.7 mEq/L (3.5-5.2) 09/01/18 17:38 Chloride 101 mEq/L (97-110) 09/01/18 17:38 Carbon Dioxide 26 mEq/l (22-31) 09/01/18 17:38 Anion Gap 8 mEq/L (6-14) 09/01/18 17:38 BUN 13 mg/dL (7-23) 09/01/18 17:38 Creatinine 0.6 mg/dL (0.6-1.0) 09/01/18 17:38 Estimated GFR > 60 09/01/18 17:38 Glucose 104 mg/dL (70-100) H 09/01/18 17:38 Calcium 9.2 mg/dL (8.5-10.4) 09/01/18 17:38 Total Bilirubin 0.7 mg/dL (0.1-1.4) 09/01/18 17:38 AST 19 IU/L (14-46) 09/01/18 17:38 ALT 21 IU/L (9-52) 09/01/18 17:38 Alkaline Phosphatase 108 IU/L (38-126) 09/01/18 17:38 Total Protein 7.1 g/dL (6.3-8.2) 09/01/18 17:38 Albumin 3.9 g/dL (3.5-5.0) 09/01/18 17:38 Assessment & Plan Assessment: Cellulitis of LUE and LLE associated with cat scratch - BCx's pending. Continue IV Unasyn. US of LUE to evaluate for abscess or fluid collection. ID consult in am. Thoracic spine fusion - followed by Dr. Nicole. MRI T spine today with multi-level degenerative change and T5-T6 disc protrusion. Neurosurg planning for revision, which is on hold until acute infectious issues resolved. Chronic pain on continuous opioids - cont home meds plus prn IV dilaudid for pain given above infection Hypothyroid - cont home synthroid Full code Dispo - admit to inpt, anticipate >48 hrs hospitalization for management of cellulitis.
[2018-09-01] MEDS: PREGABALIN 150 MG CAP PO SCH (23:05)
[2018-09-01] MEDS: morphINE SR 15 MG TAB PO SCH (23:05)
[2018-09-01] MEDS: AMPICILLIN/SULBACTAM 3 GM in NS 100 ML IV SCH (23:48)
[2018-09-02] MEDS: HYDROmorphONE/DILAUDID 4 MG TAB PO PRN ×2 (04:36→13:40)
[2018-09-02] MEDS: LEVOTHYROXINE 100 MCG TAB PO SCH (05:07)
[2018-09-02 05:27] LABS: PLATELET COUNT 153 10^3/uL (150-400)
[2018-09-02] MEDS: AMPICILLIN/SULBACTAM 3 GM in NS 100 ML IV SCH ×3 (06:03→18:23)
[2018-09-02] MEDS: DULoxetine 60 MG CAP PO SCH (08:20)
[2018-09-02] MEDS: morphINE SR 15 MG TAB PO SCH ×2 (08:20→21:29)
[2018-09-02] MEDS: ENOXAPARIN 40 MG/0.4 ML SYR SC SCH (08:20)
[2018-09-02] MEDS: PANTOPRAZOLE SODIUM 40 MG TAB PO SCH (08:20)
[2018-09-02] MEDS: PREGABALIN 150 MG CAP PO SCH ×2 (08:30→21:29)
[2018-09-02] MEDS: Naloxegol Oxalate [Movantik] 25 MG PO SCH (08:33)
--- NOTE | 2018-09-02 09:15 | HOSPPROG ---
Hospitalist Progress Note Assessment/Plan: Cellulitis of LUE and LLE associated with cat scratch - No sepsis. BCx's pending. Continue IV Unasyn. US of LUE neg for abscess, but more fluctuance of wrist today, may warrant I&D. -cont IV unasyn, can likely transition to oral augmentin tomorrow -will d/w indiction for I&D with ID Thoracic spine fusion - followed by Dr. Nicole. MRI T spine today with multi-level degenerative change and T5-T6 disc protrusion. Neurosurg planning for revision next week. Chronic pain on continuous opioids - cont home meds plus prn IV dilaudid for pain given above infection Hypothyroid - cont home synthroid Full code Dispo - inpt for ongoing IV atbx needs Subjective: Pt feels a little better. No fevers or chills. Less pain and redness. Leg lesion is draining. Able to move wrist better today. Appetite good. Objective: Vital Signs Temp Pulse Resp BP Pulse Ox 37.1 C 72 16 109/57 L 93 09/02/18 08:00 09/02/18 08:00 09/02/18 08:00 09/02/18 08:00 09/02/18 08:00 Laboratory Results 09/02/18 05:03 09/01/18 09/02/18 09/03/18 05:59 05:59 06:59 Intake Total 1150 100 Output Total 900 1000 Balance 250 -900 - Physical Exam Constitutional: no apparent distress Eyes: PERRL Ears, Nose, Mouth, Throat: moist mucous membranes Cardiovascular: regular rate and rhythym Respiratory: no respiratory distress Gastrointestinal: normoactive bowel sounds, soft, non-tender abdomen Skin: warm, other (Left wrist and forearm with receding erythema, more focal fluctuance of wrist. Left leg also with decreased erythema, some drainage, culture obtained) Musculoskeletal: full muscle strength Neurologic: AAOx3 Psychiatric: interacting appropriately ICD10 Worksheet Patient Problems: Problems Problem Status Onset Bowel and bladder incontinence Acute Cellulitis and abscess of hand Acute Cellulitis and abscess of left leg Acute Thoracic vertebral fracture Acute
--- NOTE | 2018-09-02 11:23 | NEUSURGPN ---
Assessment/Plan: Assessment: 63 yr old F with infection on left lower and upper extremities from cat scratch per patient Please see dictated consult when available Plan: -Patient was scheduled for thoracic fusion with Dr Bains on 09/05/18. Will delay surgery for infection will need to be cleared prior to proceeding. -Spoke with ID who agrees and patient may be going to OR for I&D left hand/wrist -Neurosurgery will sign off and we will have patient follow up once infection is cleared to get spine surgery rescheduled. Discussed patient with Dr Nicole and Dr Herring Please call neurosurgery with any questions/concerns Patient was seen and examined by neurosurgical services at 1115am. Subjective: Resting, back pain, left hand pain Objective: AxOx4 PERRLA CN 2-12 grossly intact MAEx4 5/5 BUE. BLE Left wrist red/swollen Neuro Check Frequency: per routine Urinary Catheter in Place: No - Physician Discussed Patient with : Bonnie Neurosurgery Physical Exam - Vitals, I&O, Labs I and O 09/01/18 09/02/18 09/03/18 05:59 05:59 06:59 Intake Total 1150 100 Output Total 900 1000 Balance 250 -900 Weight 81.647 kg Intake: Oral (ml) 150 IV Infused (ml) 1000 100 Ampicillin/Sulbactam 3 gm 100 In Ns 100 ml @ 200 mls/ hr IV Q6HRS [facility] Rx#: [id number] Output: Urine (ml) 900 1000 Toilet 900 1000 Other: Number of Voids 1 Toilet 1 Vital Signs Temp Pulse Resp BP Pulse Ox 37.1 C 72 16 109/57 L 93 09/02/18 08:00 09/02/18 08:00 09/02/18 08:00 09/02/18 08:00 09/02/18 08:00 Laboratory Results 09/02/18 05:03 ICD10 Worksheet Patient Problems: Problems Problem Status Onset Bowel and bladder incontinence Acute Cellulitis and abscess of hand Acute Cellulitis and abscess of left leg Acute Thoracic vertebral fracture Acute
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
--- NOTE | 2018-09-02 12:28 | PDMN ---
Medical Necessity Medical necessity: Change to IP, as of 09/02/17, per MD & MCG M-70; los >2 mn for ongoing management of LUE & LLE cellulitis; requiring further monitoring, possible I&D, IV abx & ID consult
--- NOTE | 2018-09-02 16:33 | GCON ---
[f rep st] CONSULTATION ADDITIONAL PHYSICIAN: Gael Nicole MD. CHIEF COMPLAINT: Left hand and left leg infection. HISTORY OF PRESENT ILLNESS: The patient is a 63-year-old female with a history of thoracolumbar fusion by Dr. Nicole. She has a history of a multi level thoracic fusion with Dr Nicole and is scheduled for an extension of her fusion on Tuesday. She presented to the emergency room with concerns for left upper and lower extremity cellulitis. She apparently had developed some bowel and bladder incontinence as well. Which she is not presently. The patient states that she was scratched by her cat in multiple areas when she was trying to clip its nails. The patient states that she has been having some low- grade fevers, but denies any chills. The patient has been admitted for IV antibiotics. . REVIEW OF SYSTEMS: A 10-point review of systems was performed and negative aside as mentioned in HPI. ALLERGIES: Corticosteroids. MEDICATIONS: Home medications include calcium with vitamin D 1 tab p.o. daily, Cymbalta 60 mg daily, diazepam 5 mg 5-10 mg twice daily p.r.n., levothyroxine 100 mcg p.o. daily, Linzess 145 mcg p.o. at bedtime, Movantik 25 mg p.o. daily, Aleve 220 mg p.o. twice daily, Protonix 40 mg p.o. daily, Lyrica 150 mg p.o. twice daily, morphine SR 15 mg p.o. twice daily, hydromorphone 4 mg p.o. q.8 hours as needed. PAST MEDICAL HISTORY: Chronic pain, opioid dependence. SURGICAL HISTORY: History of a thoracolumbar fusion with Dr. Nicole. Kyphoplasty, Dr. Nicole in 2017. FAMILY HISTORY: Family history was reviewed and noncontributory to the current situation. SOCIAL HISTORY: Patient is a former smoker. States that she quit 1 month ago in preparation for spinal surgery. Was down to smoking 1 [place] once per day. Denies any alcohol use. Denies any drug use currently other than marijuana. Does note IV drug use when she was "younger." DIAGNOSTICS: Laboratory results: White blood cell count 4.55, hematocrit 37.5 , hemoglobin 11.9, platelets 153. Sodium 135, potassium 3.7, BUN 13, creatinine 0.6, glucose 104, AST 19, ALT 21. DIAGNOSTIC IMAGING: MRI of the thoracic spine performed on September 01, 2018, demonstrates multilevel degenerative disease with a small central disk protrusion at T5-6, flattening the ventral surface of the spinal cord without cord compression. PHYSICAL EXAM: VITAL SIGNS: Blood pressure is 109/57, heart rate is 72, respiratory rate 16, oxygen saturation 93% on room air, temperature is 37.1 degrees Celsius. HEENT: Head is normocephalic and atraumatic. Pupils are equal, round, and reactive to light. EOMI is intact. Full visual oleary to confrontation. RESPIRATORY AND CARDIAC: Deferred. ABDOMEN, GENITOURINARY: Deferred. NEUROLOGIC: The patient is awake and alert, and oriented to name, place, date, time, and situation. Memory intact to immediate, past, and current events. Speech: No aphasia or dysphonia. Cranial nerves 2-12 are grossly intact. 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 Sensation is grossly intact to light touch throughout all dermatomal distributions bilateral lower extremities. Reflexes: Brachialis, and knee jerk are 2+ out of 4. Babinski's is negative. No evidence of clonus. The patient does have a skin ulcer on her left anterior thigh, as well as her left wrist and hand are swollen and reddened. There is a prominent vein on the left forearm. ASSESSMENT AND PLAN: Patient is a 63-year-old female who has a past history of a thoracic fusion with Dr. Nicole and was scheduled for an upcoming extension of her fusion on Tuesday. She presented to our office yesterday and was sent to the emergency room for concerns with noted swelling in her left hand and signs of cellulitis of her left leg. The patient has reported changes in her bowel and bladder habits, including incontinence which she is not presently experiencing. MRI of the thoracic spine demonstrated a small central disk protrusion at T5 without any significant cord compression to explain her bowel and bladder pattern changes. There is obvious infection present in her left hand and her left lower extremity. I have discussed her situation at length with the infectious disease doctor, Dr. Palencia, who recommends holding on any instrumented surgery at this time until this infection process has cleared. Dr. Nicole and Dr. Herring have also reviewed the MRI and are in agreement with this plan. Neurosurgery will sign off on this patient and we will have her follow up as an outpatient once her infection is cleared so we can get her surgery rescheduled. Patient agrees with the plan and all of her questions were answered. The patient was seen and examined at the bedside by Neurosurgical Services today September 02, 2018, at 11:15 a.m. Please contact Neurosurgery with any further questions or concerns. /[id number]/MODL MTDD
--- NOTE | 2018-09-02 16:59 | ASMTCMCOM ---
CM Note CM Note Notes: Pt admitted with hand and leg cellulitis and bowel incontinence. She reported being scratched by her cat on Tuesday. She is currently on IV Unasyn and ID is following. She has a hx of thoracic spine disease, depression, fibromyalgia and anxiety. CM will follow for any d/c needs. D/C plan: TBD Date Signed: 09/02/2018 04:58 PM Electronically Signed By:JAZ Hernandez
[2018-09-02] MEDS ORDERED: BUPIVACAINE/EPI 0.5% 30 ML SDV ONE (17:01)
[2018-09-02] MEDS ORDERED: BACITRACIN 50,000 UNITS/10 ML SYR IRR ONE (17:02)
[2018-09-02] MEDS ORDERED: POLYMYXIN B SULFATE 500,000 UNIT/10 ML SYR IRR ONE (17:02)
[2018-09-02] MEDS ORDERED: ONDANSETRON 4 MG/2 ML VIAL IVP PRN (17:23)
[2018-09-02] MEDS ORDERED: NALOXONE HCL 0.4 MG/ML INJ IVP PRN (17:23)
[2018-09-02] MEDS ORDERED: PROMETHAZINE HCL 25 MG/ML INJ IVP PRN (17:23)
[2018-09-02] MEDS ORDERED: ALBUTEROL 3 ML DEYVIAL IH PRN (17:23)
--- NOTE | 2018-09-02 17:23 | PDANEPAE ---
ANE History of Present Illness here for hand I and D ANE Past Medical History - Cardiovascular History Hx Hypertension: No Hx Arrhythmias: No Hx Chest Pain: No Hx Coronary Artery / Peripheral Vascular Disease: No Hx CHF / Valvular Disease: No Hx Palpitations: No Cardiovascular History Comment: hx of PVC late with stress - Pulmonary History Hx COPD: No Hx Asthma/Reactive Airway Disease: No Hx Recent Upper Respiratory Infection: No Hx Oxygen in Use at Home: No Hx Sleep Apnea: No Sleep Apnea Screening Result - Last Documented: Negative Pulmonary History Comment: SMOKES MMJ FOR PAIN - Neurologic History Hx Cerebrovascular Accident: No Hx Seizures: No Hx Dementia: No Neurologic History Comment: cervical and lumbar fusions. Lumbar Jak broke on 01-29. pain in butt,hips low back. - Endocrine History Hx Diabetes: No Endocrine History Comment: hypothyroid. - Renal History Hx Renal Disorders: No - Liver History Hx Hepatic Disorders: Yes Hepatic History Comment: hx of hepatitis C-1996 treated w/chemo- Interferon and Riboviron 2001 - Neurological & Psychiatric Hx Hx Neurological and Psychiatric Disorders: Yes Neurological / Psychiatric History Comment: anxiety,depression - Cancer History Hx Cancer: No - Congenital Disorder History Hx Congenital Disorders: No - GI History Hx Gastrointestinal Disorders: Yes Gastrointestinal History Comment: constipation. GERD - Other Health History Other Health History: FIBROMYALGIA. UNDETERMINED RASH ON TOP OF SCALP. lumbar radiculopathy - Chronic Pain History Chronic Pain: Yes (THORACIC REGION/LT HIP) - Surgical History Prior Surgeries: KYPHOPLASTY 08/09/2016. cervical fusion 1980. sinus surgery ,. R total hip 2009,. lumbar fusion T10- S1 4-14 ANE Review of Systems Review of systems is: negative Review of Systems: - Exercise capacity Exercise capacity: >=4 METS ANE Patient History - Allergies Allergies/Adverse Reactions: Corticosteroids (Glucocorticoids) Allergy (Severe, Verified 03/08/17 15:24) Swelling/neck,face,throat - Home Medications Home medications: home medication list seen and reviewed Home Medications: Calcium Carb W/Vit D [Calcium Carb W/Vit D 500/200 (*)] 500 mg PO DAILY [Last Taken Unknown] DULoxetine [Cymbalta 60 MG (*)] 60 mg PO DAILY 08/17/18 [Last Taken 09/01/18] Diazepam [Valium 5 MG (*)] 5 - 10 mg PO BID PRN 08/17/18 [Last Taken 08/31/18] Levothyroxine [Synthroid 100 mcg (*)] 100 mcg PO DAILY06 08/17/18 [Last Taken ] Linaclotide [Linzess] 145 mcg PO HS 08/17/18 [Last Taken 08/31/18] Naloxegol Oxalate [Movantik] 25 mg PO DAILY 08/17/18 [Last Taken 09/01/18] Naproxen Sodium [Aleve 220 MG (*)] 220 mg PO BID PRN 08/17/18 [Last Taken Unknown] Pantoprazole Sodium [Protonix 40mg (*)] 40 mg PO DAILY 08/17/18 [Last Taken 02/12] Pregabalin [Lyrica 150mg (*)] 150 mg PO BID 08/17/18 [Last Taken 09/01/18] morphINE SR [Ms Contin/Oramorph 15 mg (*)] 15 mg PO BID 08/17/18 [Last Taken 02/12 am dose] HYDROmorphone HCL [Dilaudid 4 mg (*)] 4 mg PO Q8H PRN 09/01/18 [Last Taken 09/01 one dose in am] - NPO status NPO Status: no food or drink >8 hours NPO Since - Liquids (Date): 09/02/18 NPO Since - Liquids (Time): 09:30 NPO Since - Solids (Date): 09/02/18 NPO Since - Solids (Time): 09:30 - Smoking Hx Smoking Status: Former smoker - Alcohol Use Alcohol Use: None - Family Anes Hx Family Hx Anesthesia Complications: NEG ANE Labs/Vital Signs - Labs Result Diagrams: 09/02/18 05:03 09/01/18 17:38 - Vital Signs Vital Signs: reviewed preoperatively; see RN documention for details Blood Pressure: 117/67 Heart Rate: 75 Respiratory Rate: 14 O2 Sat (%): 91 Height: 172.72 cm Weight: 81.647 kg ANE Physical Exam - Airway Neck exam: FROM Mallampati Score: Class 1 - Pulmonary Pulmonary: no respiratory distress - Cardiovascular Cardiovascular: regular rate and rhythym - ASA Status ASA Status: II ANE Anesthesia Plan Anesthesia Plan: GA w LMA
--- NOTE | 2018-09-02 17:26 | PDHPUP ---
History & Physical Update H&P update statement: This history and physical update is based on an assessment of the patient which was completed after admission or registration (within 24 hours), but prior to the surgery/procedure. H&P update: H&P reviewed & patient examined, no change in patient's condition since H&P completed
[2018-09-02] MEDS ORDERED: fentaNYL 100 MCG/2 ML INJ ONE ×4 (17:32→19:05)
[2018-09-02] MEDS ORDERED: ONDANSETRON 4 MG/2 ML VIAL ONE (17:40)
[2018-09-02] MEDS ORDERED: PROPOFOL 200 MG/20 ML VIAL ONE (17:41)
--- NOTE | 2018-09-02 18:42 | POSTANESTH ---
Post Anesthetic Evaluation Cardiovascular Status: Normal, Stable Respiratory Status: Normal, Stable Level of Consciousness/Mental Status: Can Participate in Eval Pain Control: Adequate, Prn Tx Ordered Nausea/Vomiting Control: Adequate, Prn Tx Ordered Complications Possibly Related to Anesthesia: None Noted
[2018-09-02] MEDS: fentaNYL 100 MCG/2 ML INJ IVP PRN ×2 (18:48→19:06)
[2018-09-02] MEDS ORDERED: HYDROmorphONE/DILAUDID 2 MG/ML INJ ONE (19:05)
[2018-09-02] MEDS: HYDROmorphONE/DILAUDID 2 MG/ML INJ IVP PRN ×2 (19:07→19:35)
[2018-09-02] MEDS: Linaclotide [Linzess] 145 MCG PO SCH (21:30)
[2018-09-03] MEDS: AMPICILLIN/SULBACTAM 3 GM in NS 100 ML IV SCH ×4 (00:41→18:01)
[2018-09-03] MEDS: HYDROmorphONE/DILAUDID 4 MG TAB PO PRN ×5 (00:49→22:16)
--- NOTE | 2018-09-03 03:50 | GCON ---
[f rep st] CONSULTATION REFERRING PHYSICIAN: Kristin Palencia MD ADDITIONAL REFERRING PHYSICIAN: Eva John MD CHIEF COMPLAINT: Left hand abscess and left thigh abscess. HISTORY OF PRESENT ILLNESS: The patient is a 63-year-old female who was cutting her cat's claws on . The cat did not like it and scratched her on the dorsum of the left hand and her left thigh. She states that she cleaned the scratches off with water. The next day, the wounds were becoming e rythematous and more painful. Yesterday, she was seen by the PA for one of the spine surgeons for an upcoming spine surgery, and when the hand was seen by the PA, she was referred to the emergency room . She was admitted to the Internal Medicine service and started on Unasyn, the Infectious Disease se rvice consulted. Today, some of the erythema over the arm was improving; however, she appeared to be developing an abscess, and I was consulted for its management. REVIEW OF SYSTEMS: A 10-point review of system is negative, except as noted above. Per report, the patient was complaining of bowel and bladder incontinence upon admission, and a thoracic spine MRI wa s performed. PAST MEDICAL HISTORY: Depression, anxiety, hypothyroidism, fibromyalgia. PAST SURGICAL HISTORY: Neck and thoracic spine fusions by Dr. Nicole. MEDICATIONS: Please see MAR. ALLERGIES: Corticosteroids. 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 FAMILY HISTORY: Noncontributory. PHYSICAL EXAMINATION: GENERAL: She is alert and oriented, lying in bed, does not appear to be in di stress. MUSCULOSKELETAL: Left hand: There is erythema and fluctuance over the dorsum of the left h and and wrist about 4 x 3 cm. There is tracking erythema of the volar and dorsal forearm that appear s to be decreasing beyond its marked margins from yesterday. There is also an erythematous fluctuant area over the anterior aspect of the thigh. ASSESSMENT AND PLAN: Left hand dorsal soft tissue abscess due to cat scratch and left thigh abscess due to cat scratch. I think an incision and drainage is indicated in the operating room. We will be performing surgery as soon as possible with the patient's n.p.o. status. I will then follow the pat ient while she is in the hospital, and we will await cultures. /[id number]/MODL
[2018-09-03] MEDS: LEVOTHYROXINE 100 MCG TAB PO SCH (05:04)
[2018-09-03] MEDS: DIAZEPAM 5 MG TAB PO PRN ×2 (05:10→21:29)
--- NOTE | 2018-09-03 07:24 | GOP ---
[f rep st] OPERATIVE REPORT DATE OF OPERATION: SURGEON: Tarik Rucker MD ANESTHESIA: General. PREOPERATIVE DIAGNOSIS: 1. Left dorsal wrist abscess, complicated. 2. Left anterior thigh abscess, simple. POSTOPERATIVE DIAGNOSIS: 1. Left dorsal wrist abscess, complicated. 2. Left anterior thigh abscess, simple. PROCEDURE PERFORMED: 1. Incision and drainage of left dorsal wrist abscess, complicated. 2. Incision and drainage of left anterior thigh abscess, simple. FINDINGS: ESTIMATED BLOOD LOSS: 10 cc. INDICATIONS: The patient is a 63-year-old female who was scratched by her cat on August 29. Her scratch wounds on her anterior thigh and wrist began to become more red and painful, and yester day while she was at the office for her planning for her spine surgery, the PA at the office recommen ded that she be seen in the ER due to the appearance of the wrist. She was started on IV antibiotics . Today, I was called by the ID physician for surgical management of the infections, as she appeared to be developing abscesses. On my own evaluation, she had a fluctuant abscess over her dorsal wrist . An ultrasound also showed an abscess over her anterior thigh which also needs to be surgically add ressed. Surgery is indicated for both these abscesses. We discussed risks and benefits. Risks incl ude bleeding, infection, damage to surrounding structures, stiffness, weakness, need for further surg ashok, wound healing complications. She understood these risks and wished to proceed. DESCRIPTION OF PROCEDURE: The patient was seen in the preoperative holding area. She was given the opportunity to ask any questions, and all her questions were answered. Consent was signed. The surg ical site was marked. She was then transferred to the operative suite, and care was taken to pad all bony prominences on the gurney. A time-out was called including surgical and anesthesia teams, conf irming surgical site and procedure to be performed. The left upper extremity was prepped and draped in the usual sterile fashion. The left lower extremity was also prepped and draped in the usual ster ile fashion. She was given her scheduled Unasyn. I exsanguinated the left upper extremity by elevat ing the arm, and then the tourniquet was inflated to 250 mmHg. I made a vertical incision over the d orsal wrist abscess, and there was copious purulent material that was expressed. This abscess encomp assed about half of her dorsal wrist. I then irrigated it copiously with sterile saline. I debrided some infected-appearing material, and then again irrigated it copiously with sterile saline. The wo und was closed loosely with nylon and packed with iodoform strips. I then turned my attention to the anterior thigh. She had a small fluctuant area over the thigh. I made a vertical incision over thi s area, as well, undermined the area. There was purulent material. I took cultures of this. Of not e, cultures were taken of the wrist, as well. I then irrigated copiously with sterile saline, closed this loosely with nylon, and packed it, as well. Sterile dressings were applied to both. She ailyn ated the procedure well, and was taken to the PACU in stable condition. POSTOP CONDITION: Stable. POSTOP PLAN: She will be admitted back to the Internal Medicine service where she will be followed b y ID, and I will follow her while in the hospital. /[id number]/MODL
[2018-09-03] MEDS: ENOXAPARIN 40 MG/0.4 ML SYR SC SCH (08:45)
[2018-09-03] MEDS: morphINE SR 15 MG TAB PO SCH ×2 (08:45→21:29)
[2018-09-03] MEDS: PREGABALIN 150 MG CAP PO SCH ×2 (08:46→21:28)
[2018-09-03] MEDS: DULoxetine 60 MG CAP PO SCH (08:46)
[2018-09-03] MEDS: PANTOPRAZOLE SODIUM 40 MG TAB PO SCH (08:46)
[2018-09-03] MEDS: Naloxegol Oxalate [Movantik] 25 MG PO SCH (08:47)
--- NOTE | 2018-09-03 10:57 | HOSPPROG ---
Hospitalist Progress Note Assessment/Plan: Cellulitis and abscess of LUE and LLE associated with cat scratch - No sepsis. BCx's ngtd. S/P I&D of left wrist and left leg abscess, GS with GPC's, Cx pending -cont IV unasyn -appreciate ortho and ID assistance Thoracic spine fusion - followed by Dr. Nicole. MRI T spine yest with multi-level degenerative change and T5-T6 disc protrusion. -Neurosurg planning for revision next week. Chronic pain on continuous opioids - cont home meds (increased frequency of oral dilaudid) plus prn IV dilaudid for pain given above infection Hypothyroid - cont home synthroid Full code Dispo - inpt for ongoing IV atbx needs Subjective: Pt reports worse pain today. No fevers or chills, but felt sweaty during the night. No CP or SOB. Eating well. Objective: Vital Signs Temp Pulse Resp BP Pulse Ox 36.6 C 70 14 103/54 L 90 L 09/03/18 08:00 09/03/18 08:00 09/03/18 08:00 09/03/18 08:00 09/03/18 08:00 Microbiology 09/02/18 10:08 Gram Stain - Final Leg - Swab 09/02/18 17:55 Gram Stain - Final Leg - Eswab 09/02/18 17:55 Gram Stain - Final Wrist - Eswab 09/02/18 09/03/18 09/04/18 04:59 05:59 05:59 Intake Total 136 Output Total Balance 136 - Physical Exam Constitutional: no apparent distress Eyes: PERRL Ears, Nose, Mouth, Throat: moist mucous membranes Cardiovascular: regular rate and rhythym Respiratory: no respiratory distress, clear to auscultation Gastrointestinal: normoactive bowel sounds, soft, non-tender abdomen Skin: warm, other (left wrist incision with packing, had saturated dressing, which is changed, less erythema. Left leg also with packing, decreased erythema ) Musculoskeletal: full muscle strength Neurologic: AAOx3 Psychiatric: interacting appropriately ICD10 Worksheet Patient Problems: Problems Problem Status Onset Bowel and bladder incontinence Acute Cellulitis and abscess of hand Acute Cellulitis and abscess of left leg Acute Thoracic vertebral fracture Acute
--- NOTE | 2018-09-03 11:16 | PCMIDPN ---
Assessment/Plan: 1. Abscess left wrist dorsum secondary to cat scratch without septic arthritis status post incision and drainage : Sincerely appreciate 's excellent care! Await culture results, and continue Unasyn as is. From what I could see, cellulitic component is markedly improved. 2. Left thigh abscess status post I&D: When this was visualized by ultrasound yesterday, I called Dr. Rucker and asked him if he could wash this out as well in the operating room, and he graciously agreed. Wound looks much better today. Continue Unasyn and local wound care. 3. Miscellaneous: Status post Tdap. HIV antibody testing pending. 09/03/18 11:15 Subjective: Status post washout of left wrist abscess and left thigh abscess. Cultures are pending. Patient states she has a fair amount of pain in her left hand and is asking for more pain medication. Objective: Unasyn 3 g IV q.6 hours day 2 No fevers Vital Signs Temp Pulse Resp BP Pulse Ox 36.6 C 70 14 103/54 L 90 L 09/03/18 08:00 09/03/18 08:00 09/03/18 08:00 09/03/18 08:00 09/03/18 08:00 Microbiology 09/02/18 10:08 Gram Stain - Final Leg - Swab 09/02/18 17:55 Gram Stain - Final Leg - Eswab 09/02/18 17:55 Gram Stain - Final Wrist - Eswab 09/02/18 09/03/18 09/04/18 04:59 05:59 05:59 Intake Total 136 Output Total Balance 136 ESR 33 MM/HR (0-30) H 09/01/18 17:38 Multiple cultures are pending Gram stain left anterior thigh 1+ Gram-positive cocci, culture pending Gram stain left wrist 1+ Gram-positive cocci, culture pending - Physical Exam General Appearance: other (Looks tired, but nontoxic) Extremities: other (Left wrist and forearm is wrapped with primary surgical dressing that I did not take down. However, I can see that her forearm cellulitis is practically gone. Left thigh wound: Market improvement. No longer fluctuant and cellulitic component has greatly improved. No drainage. Sutures in place.) ICD10 Worksheet Patient Problems: Problems Problem Status Onset Bowel and bladder incontinence Acute Cellulitis and abscess of hand Acute Cellulitis and abscess of left leg Acute Thoracic vertebral fracture Acute
[2018-09-03] MEDS: NAPROXEN SODIUM 220 MG TAB PO SCH ×2 (12:19→21:29)
[2018-09-03] MEDS: HYDROmorphONE/DILAUDID 1 MG/ML INJ IVP PRN (12:56)
--- NOTE | 2018-09-03 13:49 | SOAPPROG ---
SOAP Progress Note Assessment/Plan: Assessment: POD#1 s/p L wrist and L thigh I&D -doing ok. Expected post op pain. Plan: -packing and dressing changed by me today. She may start soaks today. She will need to continue packing changes and soaks as we discussed today. 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 -Start daily soaks tmrw 50/[address] hand in container for 10 min after removing packing, then repack wound. -For the thigh she may start simple packing changes tmrw -Work on finger and wrist ROM -She should f/u with me in 1 wk 09/03/18 13:46 Subjective: Doing ok this am. Wrist hurts Objective: Vital Signs Temp Pulse Resp BP Pulse Ox 36.6 C 91 16 109/63 92 09/03/18 12:00 09/03/18 12:00 09/03/18 12:00 09/03/18 12:00 09/03/18 12:00 Microbiology 09/02/18 10:08 Gram Stain - Final Leg - Swab 09/02/18 17:55 Gram Stain - Final Leg - Eswab 09/02/18 17:55 Gram Stain - Final Wrist - Eswab 09/02/18 09/03/18 09/04/18 04:59 05:59 05:59 Intake Total 136 Output Total Balance 136 L wrist -packing removed. No purulence. Overall infection resolving -good ROM fingers and wrist -wound repacked L thigh -packing removed, no purulence -wound repacked ICD10 Worksheet Patient Problems: Problems Problem Status Onset Bowel and bladder incontinence Acute Cellulitis and abscess of hand Acute Cellulitis and abscess of left leg Acute Thoracic vertebral fracture Acute
[2018-09-03] MEDS: Linaclotide [Linzess] 145 MCG PO SCH (21:30)
[2018-09-04] MEDS: AMPICILLIN/SULBACTAM 3 GM in NS 100 ML IV SCH ×3 (00:08→13:15)
[2018-09-04 05:08] LABS: HIV TYPE 1 AND 2 NEGATIVE (NEGATIVE)
[2018-09-04] MEDS: LEVOTHYROXINE 100 MCG TAB PO SCH (07:08)
--- NOTE | 2018-09-04 08:26 | SOAPPROG ---
SOAP Progress Note Assessment/Plan: Assessment: POD#2 s/p L wrist and L thigh I&D -pain and motion improved today -growing strep intermedius Plan: - She may start soaks today. She will need to continue packing changes and soaks as we discussed today. 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 -Start daily soaks tmrw 50/[address] hand in container for 10 min after removing packing, then repack wound. -For the thigh she may start simple packing changes -Work on finger and wrist ROM -She should f/u with me in 1 wk -I think she may potentially d/c pending eval by ID Subjective: Hand and thigh feel better this morning Objective: Vital Signs Temp Pulse Resp BP Pulse Ox 37.1 C 69 14 109/64 95 09/04/18 03:33 09/04/18 03:33 09/04/18 03:33 09/04/18 03:33 09/04/18 03:33 Microbiology 09/02/18 10:08 Gram Stain - Final Leg - Swab 09/02/18 17:55 Gram Stain - Final Leg - Eswab 09/02/18 17:55 Gram Stain - Final Wrist - Eswab 09/03/18 09/04/18 09/05/18 05:59 05:59 05:59 Intake Total 886 Output Total 400 Balance 486 L hand/wrist -dressing removed, erythema and swelling improving. No purulence -ROM of fingers improving L thigh -dressing c/d/i ICD10 Worksheet Patient Problems: Problems Problem Status Onset Bowel and bladder incontinence Acute Cellulitis and abscess of hand Acute Cellulitis and abscess of left leg Acute Thoracic vertebral fracture Acute
[2018-09-04] MEDS: DULoxetine 60 MG CAP PO SCH (09:33)
[2018-09-04] MEDS: Naloxegol Oxalate [Movantik] 25 MG PO SCH (09:35)
[2018-09-04] MEDS: morphINE SR 15 MG TAB PO SCH (09:36)
[2018-09-04] MEDS: PREGABALIN 150 MG CAP PO SCH (09:37)
[2018-09-04] MEDS: ENOXAPARIN 40 MG/0.4 ML SYR SC SCH (09:37)
[2018-09-04] MEDS: PANTOPRAZOLE SODIUM 40 MG TAB PO SCH (09:38)
[2018-09-04] MEDS ORDERED: HYDROGEN PEROXIDE 236 ML BOTTLE TP SCH (11:30)
[2018-09-04 13:11] VITALS: BP 117/65
[2018-09-04] MEDS: DIAZEPAM 5 MG TAB PO PRN (13:13)
[2018-09-04] MEDS: HYDROmorphONE/DILAUDID 4 MG TAB PO PRN (13:14)
[2018-09-04] MEDS: NAPROXEN SODIUM 220 MG TAB PO SCH (13:14)
--- NOTE | 2018-09-04 13:27 | PCMIDPN ---
Assessment/Plan: Assessment: 63-year-old woman with left wrist and left thigh abscess with cellulitis secondary to cat scratches. Overall she has improved with drainage and ampicillin/sulbactam. She has a Streptococcus growing from the thigh and Staphylococcus aureus from the wrist. She can be discharged on Augmentin plus doxycycline as she will likely go before full susceptibilities of returned on the Staph aureus. Outpatient follow-up with infectious diseases has been arranged. 1. Left wrist cellulitis with abscess, secondary to Staphylococcus aureus ( susceptibilities pending); improving 2. Left thigh cellulitis with abscess, secondary to Streptococcus intermedius; improving 3. Status post I&D of dorsum of left wrist and anterior left thigh on 09/02/2018 Plan: 1. Discharge on Augmentin 875/125 x7 additional days 2. Discharge on doxycycline 100 mg p.o. Twice daily x7 days 3. No laboratory monitoring necessary for this duration of antibiotics 4. Infectious Diseases follow-up arranged for 09/21 Harshad Gonzalez MD Infectious Diseases 09/04/18 13:31 Subjective: No fever or chills in the past 24-hours. Tolerating oral diet with solids and liquids. No diarrhea, nausea, or other GI symptoms. No rash. Appetite improving but not back to normal. Improved since admission but not back to baseline health. Objective: Vital Signs Temp Pulse Resp BP Pulse Ox 37.2 C 79 16 117/65 93 09/04/18 12:00 09/04/18 12:00 09/04/18 12:00 09/04/18 12:00 09/04/18 12:00 Microbiology 09/02/18 17:55 Gram Stain - Final Wrist - Eswab 09/02/18 17:55 Gram Stain - Final Leg - Eswab 09/02/18 10:08 Gram Stain - Final Leg - Swab Wound Culture - Final Streptococcus Intermedius 09/03/18 09/04/18 09/05/18 05:59 05:59 05:59 Intake Total 886 Output Total 400 Balance 486 ESR 33 MM/HR (0-30) H 09/01/18 17:38 Medications Generic Name Dose Route Start Last Admin Trade Name Freq PRN Reason Stop Dose Admin Ampicillin Sodium/Sulbactam 100 mls @ 200 mls/hr 09/02/18 00:00 09/04/18 13: 15 Sodium 3 gm/ Sodium Chloride IV 04/08/19 00:00 100 mls Q6HRS MARIAJOSE Protocol Microbiology 09/02/18 17:55 Wrist - Eswab Gram Stain - Final 09/02/18 17:55 Leg - Eswab Gram Stain - Final 09/02/18 10:08 Leg - Swab Gram Stain - Final 09/02/18 10:08 Leg - Swab Wound Culture - Final Streptococcus Intermedius 09/02/18 17:55 Wrist - Eswab Anaerobic Culture - Preliminary Staphylococcus Aureus 09/02/18 17:55 Leg - Eswab Anaerobic Culture - Preliminary Laboratory Tests 09/01/18 09/01/18 09/01/18 17:38 17:38 17:38 WBC 6.44 Hgb 12.5 L Plt Count 163 ESR 33 H Creatinine 0.6 HIV 1&2 Antibody 09/02/18 09/03/18 05:03 08:00 WBC 4.55 Hgb 11.9 L Plt Count 153 ESR Creatinine HIV 1&2 Antibody NEGATIVE - Physical Exam General Appearance: no apparent distress, non-toxic EENT: No scleral icterus Respiratory: No accessory muscle use Neck: full range of motion, supple Skin: other (Left thigh area of debridement with packing extending out from the sutured area, no surrounding erythema, induration, or fluctuance areas; left wrist dressing not taken) Neuro/Psych: alert, oriented x 3, depressed affect, No confused - Time Spent With Patient Time Spent with Patient: greater than 25 minutes Time Spent with Patient: Greater than 25 minutes spent on this patients care, greater than 50% of time spent counseling, educating, and coordinating care regarding the above mentioned plan. ICD10 Worksheet Patient Problems: Problems Problem Status Onset Bowel and bladder incontinence Acute Cellulitis and abscess of hand Acute Cellulitis and abscess of left leg Acute Thoracic vertebral fracture Acute
--- NOTE | 2018-09-04 13:32 | PDIAF ---
- Diagnosis Code Status: Full Code - Medication Management Discharge Medications: electronically signed and located in the Home Medication List. - Orders Diet Recommendation: no restrictions on diet Additional Instructions: Follow up with Dr. Rucker in 1 week. Wound care per his directions. Follow up with [facility] for infectious disease. Complete one more week of oral Augmentin, sent to your pharmacy in [place]. - Follow Up Care Current Providers and Referrals: ДМИТРИЙ JESUS [Other] - As per Instructions Tarik Rucker MD [Medical Doctor] - Harshad Gonzalez MD [Medical Doctor] - 09/21/18 1:00 pm
--- NOTE | 2018-09-04 14:49 | ASMTLACE ---
ILANA Length of stay for Answers: 3 days current admission Acuity / Level of Answers: Yes Care: Did the patient have an inpatient admission? Comorbidities - select Answers: Opioid dependence all that apply / Chronic pain Other Notes: Hypothyroid # of Emergency department Answers: 1-2 visits in the last 6 months Social determinants Answers: Mental health diagnosis (anxiety, depression, pers onality disorders, etc.) Score: 15 Date Signed: 09/04/2018 02:48 PM Electronically Signed By:JAZ Montero
--- NOTE | 2018-09-04 14:50 | ASMTCMCOM ---
CM Note CM Note Notes: OT rec home/outpatient. Pt medically stable for d/c on oral antibiotics, no CM d/c needs identified. Date Signed: 09/04/2018 02:49 PM Electronically Signed By:JAZ Montero
[2018-09-04] MEDS: HYDROmorphONE/DILAUDID 1 MG/ML INJ IVP PRN (15:57)
--- NOTE | 2018-09-05 05:10 | GDS ---
[f rep st] DISCHARGE SUMMARY DISCHARGE DIAGNOSES: 1. Left upper extremity and left lower extremity cellulitis with associated abscesses, status post i ncision and drainage. 2. Multilevel degenerative spine disease with history of thoracic spine fusion, with plans for truong ion in the coming weeks. 3. Chronic pain with chronic continuous opioid use. 4. Hypothyroidism. CONSULTANTS: 1. Julia Oconnor, neurosurgery PA. 2. Tarik Rucker MD, orthopedic surgery. 3. Kristin Palencia MD, infectious disease. HISTORY OF DETAILS: Please see history and physical dated September 01, 2018. In brief, the patient is a 63-year-old female with history of degenerative spine disease with prior surgeries and chronic pain, on chronic continuous opioids, who presents to the emergency department with redness and pain in her left leg and left wrist. She reports having been scratched by her cat in the days prior to this deve loping. She was noted to have cellulitis. Blood cultures were drawn. She was started on IV Unasyn and admitted to the hospital for further management. HOSPITAL COURSE: The patient was continued on IV Unasyn. Infectious disease consult was obtained. He r regions of erythema and induration in her left arm and left leg ultimately developed more fluctuanc e and required incision and drainage. This was kindly performed by Dr. Tarik Rucker, orthopedic surger y. Wound cultures grew Strep intermedius as well as Staph aureus. Her wounds were packed. The packing was changed on the day of discharge. She will follow up with Dr. Rucker's clinic in 2 days for repackin g of her wounds. She has been given instructions by orthopedist for ongoing wound care, including jeanette ly soaks with hydrogen peroxide and saline. She has remained afebrile. Her erythema and areas of cell ulitis have nearly completely resolved after her incision and drainage and she is stable for transiti on to oral antibiotics. Of note, on the day of discharge, the patient did request a refill of her MS Contin and Dilaudid. I recommended she call her outpatient pain physician related to her chronic opio id needs. I did prescribe her 10 additional tablets of Dilaudid 4 mg given her acute pain needs. DISPOSITION: The patient is discharged home in stable condition. FOLLOWUP: 1. Dr. Tarik Rucker in 2 days for packing exchange of her abscesses in the left arm and left leg. 2. Dr. Harshad Gonzalez, infectious disease, September 21 at [address] Jennifer Ruvalcaba. DISCHARGE MEDICATIONS: Please see [facility] for completed medication list. Medications on discharge i nclude: 1. Tylenol 650 mg p.o. q.4 hours p.r.n. 2. Hydrogen peroxide solution mixed with saline for daily wound soaks. 3. Augmentin 875 p.o. b.i.d., #14, no refills. 4. Doxycycline 100 mg p.o. b.i.d., #14, no refills. 5. Hydromorphone 4 mg p.o. q.6 hours p.r.n., #10, no refills. She will continue all other outpatient medications as previously prescribed. Copy requested to: Dr. Paige Lynch #: [id number]/[facility] [place]
== END 2018-09-04 16:45 | disposition home or self-care (01) | DRG 580 ==
LOC: INTOOBSV 18:38 → F3N 20:36 → OBSVTOIN 09-02 09:13
PROVIDERS: ADMIT Hospitalist; ATTEND Hospitalist
DX: S61.512A Laceration without foreign body of left wrist, initial encounter (principal); B95.62 Methicillin resistant Staphylococcus aureus infection as the cause of diseases classified elsewhere; S71.112A Laceration without foreign body, left thigh, initial encounter; B95.4 Other streptococcus as the cause of diseases classified elsewhere; T79.8XXA Other early complications of trauma, initial encounter; L02.512 Cutaneous abscess of left hand; L03.114 Cellulitis of left upper limb; L02.416 Cutaneous abscess of left lower limb; L03.116 Cellulitis of left lower limb; M51.34 Other intervertebral disc degeneration, thoracic region; M51.24 Other intervertebral disc displacement, thoracic region; Z98.1 Arthrodesis status; R15.9 Full incontinence of feces; R32 Unspecified urinary incontinence; F11.20 Opioid dependence, uncomplicated; K21.9 Gastro-esophageal reflux disease without esophagitis; F32.9 Major depressive disorder, single episode, unspecified; F41.9 Anxiety disorder, unspecified; E03.9 Hypothyroidism, unspecified; M79.7 Fibromyalgia; Z87.891 Personal history of nicotine dependence
CPT/HCPCS: 96365; 97165-GO; 97535-GO; A9585; G0378; J0295; J1170; J1650; J2405; J2704; J3010; Q9967